=== PATIENT | female | born 1980 | race Two or more races ===

== ENCOUNTER 2017-08-12 16:28 | Emergency (ER) | payer OTHER ==
[~2017-08-12] VITALS: Ht 160 cm; Wt 50.8 kg
--- NOTE | 2017-08-12 16:40 | NUR ---
[id number]: ANXIETY S/P EATING LIDYA COOKIE. NAD NOTED, VSS, RESP EVEN AND UNLABORED, PT WAS PUT ON A MONITOR, WAITING FOR MD LARA.
[2017-08-12 18:36] VITALS: BP 129/70
--- NOTE | 2017-08-12 18:38 | NUR ---
Patient discharged to home in stable condition. Written and verbal after care instructions given. Patient verbalizes understanding of instruction.
== END 2017-08-12 18:40 | disposition home or self-care (01) ==
LOC: ER 16:30
DX: F41.9 Anxiety disorder, unspecified (principal); G89.29 Other chronic pain; Z88.1 Allergy status to other antibiotic agents; Z88.8 Allergy status to other drugs, medicaments and biological substances
CPT/HCPCS: A4606; Z7610